=== PATIENT | male | born 1955 | race Caucasian/White ===

== ENCOUNTER 2019-08-07 10:07 | Day surgery (SDC) | payer MEDICARE ==
[2019-08-07] MEDS: Sodium Chloride 0.9% 1,000 ML IV SCH (11:04)
[2019-08-07] MEDS ORDERED: Metoclopramide 10 MG/2 ML SDV IV PRN (11:30)
[2019-08-07] MEDS ORDERED: Midazolam 1 MG/ML 2 ML SDV ONE (12:00)
[2019-08-07] MEDS ORDERED: Propofol 1,000 MG/100 ML SDV ONE (12:00)
[2019-08-07 12:38] VITALS: BP 130/86; PULSE 84
--- NOTE | 2019-08-07 12:51 | OR ---
DATE OF OPERATION: 08/07/2019 SURGEON: Terrance Leon MD PREOPERATIVE DIAGNOSIS: History of colon polyps. POSTOPERATIVE DIAGNOSIS: History of colon polyps. PROCEDURE: Colonoscopy with polypectomy. ANESTHESIA: MAC. ESTIMATED BLOOD LOSS: Minimal. COMPLICATIONS: None. INDICATION FOR THE PROCEDURE: The patient is a 63-year-old male here today for surveillance colonoscopy. Last colonoscopy was approximately 7 years ago, was found to have polyps at that time. He otherwise denies any change in bowel habits. DESCRIPTION OF PROCEDURE: Informed consent was obtained from the patient. The patient was taken to the operating room, placed on the table in a left lateral decubitus position. Monitored anesthesia care was administered. He did a rectal exam performed and was normal. Colonoscope then advanced through the anus, directed toward the cecum. Cecum was reached and identified by appendiceal orifice as well as ileocecal valve. Colonoscope was then slowly withdrawn. He did have a small sessile polyp in the distal descending colon. This was removed with snare cautery polypectomy. The colonoscope then further withdrawn. Retroflexion performed in the rectum showing some internal hemorrhoids as well. The colonoscope was then withdrawn. Some moderate sigmoid diverticulosis was present. FINDINGS: Sigmoid diverticulosis with descending colon polyp and internal hemorrhoids. RECOMMENDATIONS: We will follow up on pathology. Would recommend repeat surveillance colonoscopy in 5 years. Also, high-fiber diet with plenty of water for his hemorrhoids and diverticula. CHATO/CELINA /[id number]
== END 2019-08-07 13:35 | disposition home or self-care (01) ==
LOC: LB.SDS 10:07
PROVIDERS: ATTEND Surgery
DX: Z12.11 Encounter for screening for malignant neoplasm of colon (principal); D12.4 Benign neoplasm of descending colon; K57.30 Diverticulosis of large intestine without perforation or abscess without bleeding; K64.8 Other hemorrhoids
CPT/HCPCS: J2250; J2704; J7030

== ENCOUNTER 2021-04-02 11:10 | Emergency (ER) | payer MEDICARE ==
[2021-04-02 11:39] VITALS: BP 126/96; PULSE 90
--- NOTE | 2021-04-02 12:12 | EDM.PDOC ---
ED HPI GENERAL MEDICAL PROBLEM - General Chief Complaint: General Stated Complaint: wounds on feet and twisted ankle Time Seen by Provider: 04/02/21 11:25 Source of Information: Reports: Patient History Limitations: Reports: No Limitations - History of Present Illness INITIAL COMMENTS - FREE TEXT/NARRATIVE: pt presents to the ER with injury to left ankle approximately 3wk ago which has not improved much. he states stiffness of ankle and pain with ambulation but no tenderness to lateral or medial malleolus. also states a wound to his right great toe and his left foot near the MTP. states some clear drainage of wound of right foot but none of wound of left foot. pt does mention he attempted to trim callous of left foot with an electric "grinding tool" and was unable to remove callous successfully, this was approx 2 weeks ago. pt clarifies the grinding tool is not a medical tool but power tool meant for industry. medical history provided by pt of borderline diabetes, neuropathy of feet. - Related Data Allergies Allergy/AdvReac Type Severity Reaction Status Date / Time No Known Allergies Allergy Verified 11/10/14 16:02 Home Meds: Home Meds Acidophilus/Lactobac Spor [Acidolphilus X-Strength] 1 tab PO BID #60 tablet 11/15/14 [Rx] Calcium Carbonate 600 mg PO 0800,1200,1700 #90 tablet 11/15/14 [Rx] Ciprofloxacin HCl [Cipro] 500 mg PO BID #10 tablet 11/15/14 [Rx] Omeprazole 20 mg PO ACBRK #90 cap.sr 11/15/14 [Rx] Potassium Chloride [Klor-Con M20] 20 meq PO BIDM #20 tab.er 11/15/14 [Rx] Sulfamethoxazole/Trimethoprim [Septra DS] 1 tab PO BID #10 tablet 11/15/14 [Rx] amLODIPine [Norvasc] 5 mg PO DAILY #90 tablet 11/15/14 [Rx] atorvaSTATin [Lipitor] 40 mg PO DAILY #90 tab 11/15/14 [Rx] hydroCHLOROthiazide [Hydrochlorothiazide] 25 mg PO DAILY #90 tablet 11/15/14 [Rx] lisinopriL [Prinivil] 20 mg PO DAILY #90 tablet 11/15/14 [Rx] metroNIDAZOLE [Flagyl] 500 mg PO Q8H #15 tablet 11/15/14 [Rx] Past Medical History - Past Health History Medical/Surgical History: Denies Medical/Surgical History Other Cardiovascular History: neropathy Social & Family History - Family History Family Medical History: No Pertinent Family History - Tobacco Use Tobacco Use Status *Q: Heavy Tobacco User Years of Tobacco use: 40 Packs/Tins Daily: 1 Used Tobacco, but Quit: Yes Month/Year Tobacco Last Used: 02/23/21 - Caffeine Use Caffeine Use: Reports: Coffee - Alcohol Use Days Per Week of Alcohol Use: 7 Number of Drinks Per Day: 1 Total Drinks Per Week: 7 - Recreational Drug Use Recreational Drug Use: No ED ROS GENERAL - Review of Systems Review Of Systems: Comprehensive ROS is negative, except as noted in HPI. ED EXAM, GENERAL - Physical Exam Exam: See Below Exam Limited By: No Limitations General Appearance: Alert, WD/WN, No Apparent Distress Respiratory/Chest: No Respiratory Distress, No Accessory Muscle Use Cardiovascular: Normal Peripheral Pulses, Regular Rate, Rhythm Extremities: Normal Range of Motion, Pedal Edema (+1 bilateral), Other (decreased sensation to feet bilaterally) Neurological: Alert, Oriented Skin Exam: Warm, Dry, No Rash, Other (wound to distal right great toe and plantar MTP of left great toe, refer to diagram.) Front/Back Body Diagram: 1 - 2.5x2.5cm ulcer, unstageable wound to distal great toe 2 - large callous to plantar aspect of MTP of great toe left foot. noted opening and unstageable wound. ED GENERAL MEDICAL PROCEDURES - Laceration/Wound Repair Left Distal Foot Lac/wound length in cm: 4 Distal NVT: Neuro & Vascular Intact, No Tendon Injury Skin Prep: Chlorhexidine (Hibiciens) Exploration/Debridement/Repair: Wound Explored, In a Bloodless Field, Explored to Base, Moderate Debridement, Moderately Undermined (3cm from 3o'clock to 9o'clock position) Sterile Dressing Applied: Nurse Tetanus Status Addressed: Yes Complications: No Progress/Comments: verbal consent for initial debridement provided. large callus removed from skin overlying MTP of left great toe. no purulent drainage noted. there is granulation tissue but no exposed tendon or bone noted. subcutaneous tissue noted. pt tolerated procedure well. Course - Vital Signs Last Recorded V/S: Last Vital Signs Temp 98.0 F 04/02/21 11:38 Pulse 90 04/02/21 11:38 Resp 16 04/02/21 11:38 BP 126/96 H 04/02/21 11:38 Pulse Ox 96 04/02/21 11:38 - Orders/Labs/Meds Orders: Active Orders 24 hr Category Date Time Status Ankle Min 3V Lt [CR] Stat Exams 04/02/21 11:38 Ordered Foot Comp Min 3V Lt [CR] Stat Exams 04/02/21 11:38 Ordered Toes Great Toe Rt T5 [CR] Stat Exams 04/02/21 11:38 Ordered CBC WITH AUTO DIFF [HEME] Stat Lab 04/02/21 11:38 Ordered COMPREHENSIVE METABOLIC PN,CMP [CHEM] Stat Lab 04/02/21 11:38 Ordered ESR [SEDIMENTATION RATE MANUAL] [HEME] Stat Lab 04/02/21 11:38 Ordered - Radiology Interpretation Free Text/Narrative:: wet read of left ankle, foot and right great toe show no fracture, dislocation or other bony abnormalities. no erosion of bone or subcutaneous gas noted on left foot or right great toe xray. Departure - Departure Time of Disposition: 13:44 Disposition: Home, Self-Care 01 Clinical Impression: Ulcer of left foot with fat layer exposed, Skin ulcer of right great toe - Discharge Information *PRESCRIPTION DRUG MONITORING PROGRAM REVIEWED*: Not Applicable *COPY OF PRESCRIPTION DRUG MONITORING REPORT IN PATIENT JOSÉ LUIS: Not Applicable Additional Instructions: keep feet elevated as often as possible wound care via physical therapy see podiatry JUSTINA without the ulcer moving past that first layer of skin and no noted inflammatory process seen on your foot or in labs, will hold from antibiotic prescription for now. follow up in clinic or ER quickly if you notice fever, increased pain, redness or swelling of your feet that is new. this means you need antibiotics. Sepsis Event Note (ED) - Evaluation Sepsis Screening Result: No Definite Risk - Focused Exam Vital Signs: Vital Signs Temp Pulse Resp BP Pulse Ox 04/02/21 11:38 98.0 F 90 16 126/96 H 96 - Problem List & Annotations (1) Skin ulcer of right great toe SNOMED Code(s): 867291456 Code(s): L97.519 - NON-PRS CHRONIC ULCER OTH PRT RIGHT FOOT W UNSP SEVERITY Status: Acute (2) Ulcer of left foot with fat layer exposed SNOMED Code(s): 942682327, 225537697 Code(s): L97.522 - NON-PRS CHRONIC ULCER OTH PRT LEFT FOOT W FAT LAYER EXPOSED Status: Acute - Problem List Review Problem List Initiated/Reviewed/Updated: Yes - My Orders Last 24 Hours: My Active Orders 04/02/21 11:38 Ankle Min 3V Lt [CR] Stat Foot Comp Min 3V Lt [CR] Stat Toes Great Toe Rt T5 [CR] Stat CBC WITH AUTO DIFF [HEME] Stat COMPREHENSIVE METABOLIC PN,CMP [CHEM] Stat ESR [SEDIMENTATION RATE MANUAL] [HEME] Stat - Assessment/Plan Last 24 Hours: My Active Orders 04/02/21 11:38 Ankle Min 3V Lt [CR] Stat Foot Comp Min 3V Lt [CR] Stat Toes Great Toe Rt T5 [CR] Stat CBC WITH AUTO DIFF [HEME] Stat COMPREHENSIVE METABOLIC PN,CMP [CHEM] Stat ESR [SEDIMENTATION RATE MANUAL] [HEME] Stat
--- NOTE | 2021-04-03 07:56 | CR ---
DATE OF SERVICE: 04/02/21 CLINICAL DATA: wound overlying MTP plantar aspect: osteo? LEFT FOOT: There are osteoarthritic changes involving multiple joints. There is hammer toe deformity at multiple toes. There is a plantar calcaneal spur. There is adjacent soft tissue swelling. No acute fracture or dislocation. No lytic or blastic bone lesions. [id number] [facility]
--- NOTE | 2021-04-03 07:59 | CR ---
DATE OF SERVICE: 04/02/21 CLINICAL DATA: wound overlying distal end of great toe, osteo? RIGHT 1ST TOE: There is soft tissue swelling and soft tissue emphysema adjacent to the distal phalanx. Infectious process should be considered. No acute fracture or dislocation. No focal lytic or blastic bone lesions. [id number] [facility]
--- NOTE | 2021-04-03 08:03 | CR ---
DATE OF SERVICE: 04/02/21 CLINICAL DATA: ankle injury, lateral malleolar TTP LEFT ANKLE: There is soft tissue swelling adjacent to the ankle joint. No acute fracture or dislocation. No lytic or blastic bone lesions. There is a plantar calcaneal spur. [id number] [facility]
== END 2021-04-02 13:55 | disposition home or self-care (01) ==
LOC: LB.ED 11:10
DX: L97.522 Non-pressure chronic ulcer of other part of left foot with fat layer exposed (principal); L97.519 Non-pressure chronic ulcer of other part of right foot with unspecified severity; Z72.0 Tobacco use; Z79.899 Other long term (current) drug therapy
CPT/HCPCS: 36415; 73610-LT; 73630-LT; 73660-T5; 80053; 85025; 85651; 99283

== ENCOUNTER 2021-08-07 10:30 | Emergency (ER) | payer MEDICARE ==
[2021-08-07 11:02] VITALS: BP 121/82; PULSE 95
--- NOTE | 2021-08-07 11:27 | EDM.PDOC ---
ED HPI GENERAL MEDICAL PROBLEM - General Chief Complaint: Lower Extremity Injury/Pain Stated Complaint: POSSIBLE INFECTION Time Seen by Provider: 08/07/21 10:45 - History of Present Illness INITIAL COMMENTS - FREE TEXT/NARRATIVE: Pt comes to the ER with P.T. with concerns about an ulcer on the left foot with possible infection. He has been having issues with this since last summer. He has seen Podiatry in [place] for workup, and has a follow up zhao there in about 10 days. PTamaraT. was working with him then as well, and has not seen him recently until today. He denies any pain, and tells me he is not diabetic, but has Neuropathy issued. No recent injuries. - Related Data Allergies Allergy/AdvReac Type Severity Reaction Status Date / Time No Known Allergies Allergy Verified 08/07/21 11:04 Home Meds: Home Meds Calcium Carbonate 600 mg PO 0800,1200,1700 #90 tablet 11/15/14 [Rx] Omeprazole 20 mg PO ACBRK #90 cap.sr 11/15/14 [Rx] amLODIPine [Norvasc] 5 mg PO DAILY #90 tablet 11/15/14 [Rx] atorvaSTATin [Lipitor] 40 mg PO DAILY #90 tab 11/15/14 [Rx] hydroCHLOROthiazide [Hydrochlorothiazide] 25 mg PO DAILY #90 tablet 11/15/14 [Rx] lisinopriL [Prinivil] 20 mg PO DAILY #90 tablet 11/15/14 [Rx] Past Medical History - Past Health History Medical/Surgical History: Denies Medical/Surgical History Cardiovascular History: Reports: Hypertension Other Cardiovascular History: neropathy Gastrointestinal History: Reports: GERD Genitourinary History: Reports: BPH Musculoskeletal History: Reports: Other (See Below) Other Musculoskeletal History: neuropathy - Past Surgical History Musculoskeletal Surgical History: Reports: None Social & Family History - Family History Family Medical History: No Pertinent Family History - Caffeine Use Caffeine Use: Reports: Coffee Review of Systems - Review of Systems Review Of Systems: Comprehensive ROS is negative, except as noted in HPI. Skin: Reports: Other (uncler and rash on left foot.) ED EXAM, GENERAL - Physical Exam Exam: See Below Skin Exam: Other (examining his left foot reveals an ulcer on the bottom of the foot, below the 1st MPT that P.T. measured at 1 cm in depth. There is no drainage at this time. The forefoot is red and warm to touch on both dorsal and ventral sides.) Course - Vital Signs Last Recorded V/S: Last Vital Signs Temp 98.3 F 08/07/21 10:30 Pulse 95 08/07/21 10:30 Resp 16 08/07/21 10:30 BP 121/82 08/07/21 10:30 Pulse Ox 94 L 08/07/21 10:30 - Orders/Labs/Meds Orders: Active Orders 24 hr Category Date Time Status Foot Comp Min 3V Lt [CR] Stat Exams 08/07/21 10:41 Ordered - Radiology Interpretation Free Text/Narrative:: x-rays of the foot reveal an air pocket in the soft tissues between the Great and 2nd toe. I do not see any obvious Osteomyelitis. Will wait for the RAD report. - Re-Assessments/Exams Free Text/Narrative Re-Assessment/Exam: 08/07/21 11:28 P.T. will apply a dressing and boot for him today. I will start him on Augmentin. He is to also take a Probiotic. Rest - elevated. He is to re check in 3-4 days, he does have an appt with P.T. He also will follow up with Podiatry as scheduled. Departure - Departure Time of Disposition: 11:30 Disposition: Home, Self-Care 01 Clinical Impression: Chronic foot ulcer Qualifiers: Laterality: left Non-pressure ulcer stage: with fat layer exposed Qualified Code(s): L97.522 - Non-pressure chronic ulcer of other part of left foot with fat layer exposed - Discharge Information *PRESCRIPTION DRUG MONITORING PROGRAM REVIEWED*: Yes *COPY OF PRESCRIPTION DRUG MONITORING REPORT IN PATIENT JOSÉ LUIS: Yes Instructions: Amoxicillin; Clavulanic Acid Tablets Referrals: David Hernandez MD [Primary Care Provider] - Forms: ED Department Discharge Sepsis Event Note (ED) - Evaluation Sepsis Screening Result: No Definite Risk - Focused Exam Vital Signs: Vital Signs Temp Pulse Resp BP Pulse Ox 08/07/21 10:30 98.3 F 95 16 121/82 94 L - My Orders Last 24 Hours: My Active Orders 08/07/21 10:41 Foot Comp Min 3V Lt [CR] Stat - Assessment/Plan Last 24 Hours: My Active Orders 08/07/21 10:41 Foot Comp Min 3V Lt [CR] Stat
--- NOTE | 2021-08-07 18:17 | CR ---
Date of Service: 08/07/21 Clinical Data: Ulcer on forefoot. LEFT FOOT: Comparison is made to a prior exam dated 04/02/21. There is soft tissue swelling and soft tissue emphysema lateral to the middle phalanx of the first toe. The gas density may be due to the ulceration. I could not exclude an abscess. No lytic or blastic bone lesions. No other significant findings. [id number] [facility]
== END 2021-08-07 11:26 | disposition home or self-care (01) ==
LOC: LB.ED 10:30
DX: L97.522 Non-pressure chronic ulcer of other part of left foot with fat layer exposed (principal); I10 Essential (primary) hypertension; K21.9 Gastro-esophageal reflux disease without esophagitis; Z79.899 Other long term (current) drug therapy
CPT/HCPCS: 73630-LT; 99283-25

== ENCOUNTER 2023-05-28 13:56 | Emergency (ER) | payer MEDICARE ==
[2023-05-28 16:17] VITALS: BP 130/99; PULSE 79
== END 2023-05-28 14:55 | disposition home or self-care (01) ==
LOC: LB.ED 13:56
DX: M77.8 Other enthesopathies, not elsewhere classified (principal); F17.210 Nicotine dependence, cigarettes, uncomplicated; K21.9 Gastro-esophageal reflux disease without esophagitis; Z79.899 Other long term (current) drug therapy
CPT/HCPCS: 73140-F7; 99283

== ENCOUNTER 2024-09-28 10:03 | Emergency (ER) | payer MEDICARE ==
[2024-09-28] MEDS: Bacitracin Oint 1 GM U/D Packet TOP ONE (10:38)
[2024-09-28 11:24] VITALS: BP 127/86; PULSE 67
== END 2024-09-28 11:05 | disposition home or self-care (01) ==
LOC: LB.ED 10:03
DX: S91.102A Unspecified open wound of left great toe without damage to nail, initial encounter (principal); Z79.01 Long term (current) use of anticoagulants; Z79.899 Other long term (current) drug therapy; W26.8XXA Contact with other sharp object(s), not elsewhere classified, initial encounter; Y93.89 Activity, other specified
CPT/HCPCS: 12001; 99283